=== PATIENT | female | born 1985 | race Caucasian/White ===

== ENCOUNTER 2024-08-05 10:32 | Emergency (ER) | payer OTHER ==
[~2024-08-05] VITALS: Ht 172.7 cm; Wt 86.2 kg
[2024-08-05] MEDS ORDERED: Bactrim Ds Tab1 EACH PO (12:10)
== END 2024-08-05 12:20 | disposition home or self-care (01) ==
LOC: ER 10:32
DX: L03.012 Cellulitis of left finger (principal)
CPT/HCPCS: 10060; 99283-25